=== PATIENT | female | born 1980 | race Caucasian/White ===

== ENCOUNTER 2018-09-22 21:21 | Emergency (ER) | payer BC, OTHER ==
[~2018-09-22] VITALS: Ht 167.6 cm; Wt 90.7 kg
--- NOTE | 2018-09-22 22:11 | ED Integumentary General ---
General Chief Complaint: Bite-Animal/Human/Insect Stated Complaint: LT LEG DOG BITE Nursing Triage Note: Patient states she was at the house of a friend while the friend was not home. Patient states that his dog bit her for an unknown reason. Patient has 2 puncture holes on her left outer thigh that are about 2 inches apart. Source: patient Exam Limitations: no limitations History of Present Illness Date Seen by Provider: September 22, 2018 Time Seen by Provider: 21:55 Initial Comments Patient presents to ER by private conveyance with chief complaint of a dog bite that occurred about 1800 today. She says the dog belongs to a neighbor and is well-known. Has demonstrated no evidence of illness, or unnatural aggression. She said that she thinks that she provoked the dog by coming into his area. [place] She said she came in because she cannot get the wound to stop bleeding. She has allergies to doxycycline but nothing else. No fevers chills nausea vomiting or sweats. Patient states she just had a whooping cough vaccination in March 2018. Allergies and Home Medications Allergies Coded Allergies: doxycycline (Verified Allergy, Unknown, 09/22/18) Patient Home Medication List Home Medication List Reviewed: Yes Review of Systems Review of Systems Constitutional: No chills, No diaphoresis EENTM: No ear discharge, No ear pain Respiratory: No cough, No short of breath Cardiovascular: No chest pain, No edema Gastrointestinal: No abdominal pain, No nausea Genitourinary: No discharge, No dysuria Past Qvdnlgo-Racfbv-Pfefqs Hx Patient Social History Alcohol Use: Regular Use Alcohol Beverage of Choice: Beer Recreational Drug Use: No Smoking Status: Never a Smoker 2nd Hand Smoke Exposure: No Recent Foreign Travel: No Contact w/Someone Who Travel: No Recent Infectious Disease Expo: No Recent Hopitalizations: No Physical Abuse: No Sexual Abuse: No Mistreated: No Fear: No Immunizations Up To Date Tetanus Booster (TDap): Less than 5yrs Seasonal Allergies Seasonal Allergies: No Past Medical History Surgeries: No Respiratory: No Cardiac: No Neurological: No Genitourinary: No Gastrointestinal: No Musculoskeletal: No Endocrine: No HEENT: No Cancer: No Psychosocial: No Integumentary: No Blood Disorders: No Physical Exam Vital Signs Vital Signs - First Documented 09/22/18 21:25 Temp 98.7 Pulse 109 Resp 20 B/P (MAP) 140/90 (107) Pulse Ox 100 O2 Delivery Room Air Capillary Refill : Less Than 3 Seconds General Appearance: WD/WN, no apparent distress HEENT: PERRL/EOMI, pharynx normal Neck: full range of motion, normal inspection Cardiovascular: normal peripheral pulses, regular rate, rhythm Respiratory: no respiratory distress, no accessory muscle use Neurologic/Psychiatric: alert, normal mood/affect, oriented x 3 Skin: other (left anterior lateral thigh with some superficial abrasions and 2 punctate zapata possibly caused by canines.) Progress/Results/Core Measures Results/Orders Vital Signs/I&O 09/22/18 21:25 Temp 98.7 Pulse 109 Resp 20 B/P (MAP) 140/90 (107) Pulse Ox 100 O2 Delivery Room Air Blood Pressure Mean: 107 Progress Progress Note : Time: 22:08 Progress Note Wound was thoroughly cleaned using chlorhexidine sterile water. The wounds were flushed with 50 cc each of sterile saline and then expressed. A loose gauze dressing was placed. Bactrim DS started. [facility] office notified. When she goes to [facility] she can ask if there was a tetanus shot in her whooping cough. She was offered a tetanus vaccination today and she declined. Departure Impression Primary Impression: Dog bite Qualified Codes: W54.0XXA - Bitten by dog, initial encounter Disposition: 01 HOME, SELF-CARE Condition: Stable Departure-Patient Inst. Decision time for Depature: 22:18 Referrals: THERESA WILHELM MD (PCP/Family) Primary Care Physician Patient Instructions: Animal Bites (DC), Rabies Add. Discharge Instructions: Keep the wound clean with regular soap and water. Change the dressing daily or as often as it becomes soiled and allow the wounds to just draining. Do not put anything over them to plug them. Take the Bactrim one capsule twice a day for the next 5 days. If you have increasing warmth, redness or discharge from the wound then you should follow-up with your primary doctor. If you have fevers chills nausea vomiting or other worrisome symptoms please return to the nearest ER. Follow-up with [facility] pharmacy and make sure you're up-to-date on her tetanus shot if not you can get from them or the health department or your primary care doctor. All discharge instructions reviewed with patient and/or family. Voiced understanding. Scripts Sulfamethoxazole/Trimethoprim (Bactrim Ds Tablet) 1 Each Tablet 1 EACH PO BID for 5 Days, #10 TAB 0 Refills Prov: DORETHA PURVIS 09/22/18 DORETHA PURVIS September 22, 2018 22:11
[2018-09-22] MEDS ORDERED: TRIM/SULFAMETH 160/800 (SEPTRA DS) TAB PO ONE (22:15)
[2018-09-22] MEDS ORDERED: SULF1TAB35 PO (22:20)
[2018-09-22 22:39] VITALS: BP 140/90
== END 2018-09-22 22:39 | disposition home or self-care (01) ==
LOC: ER FS 21:23
DX: S81.852A Open bite, left lower leg, initial encounter (principal); Z88.1 Allergy status to other antibiotic agents; W54.0XXA Bitten by dog, initial encounter
CPT/HCPCS: 99283

== ENCOUNTER 2020-10-06 09:30 | Emergency (ER) | payer BC ==
[~2020-10-06] VITALS: Ht 165 cm; Wt 95.3 kg
[~2020-10-06 09:30] MED LIST: SULF1TAB35 PO
[2020-10-06] MEDS ORDERED: NS IV 1000 ML 1,000 ML IV STA (09:49)
[2020-10-06] MEDS ORDERED: KETOROLAC 30 MG/ML VIAL IVP STA (09:49)
--- NOTE | 2020-10-06 10:05 | ED GI ---
General Chief Complaint: Abdominal/GI Problems Stated Complaint: ABD PAIN; FEVER Nursing Triage Note: Patient reports her period started and Sunday and finished on , states it was a normal period for her. She reports the cramps briefly subsided after her period, then returned on Sunday with worsening intensity. She reports a 104 degree temperature yesterday, states the fever is gone today and that she has not had any tylenol or ibuprofen today. Sepsis Screen: Possible Severe Sepsis Risk Source of Information: Patient History of Present Illness Date Seen by Provider: Oct 06, 2020 Time Seen by Provider: 09:31 Initial Comments 39 yo female that had been having lower abdominal pain with cramping since SundayOctober 02. She had gone to the [facility] clinic and was seen by Chanda Jarquin APRN. She reports having a normal LMP last week from Sunday to . She denies pain with urination. She has no blood in her stools or diarrhea. She reports a fever of 104 F at home with forehead thermometer. She states the fever is gone today but she feels light headed today. She was to have outpatient CT scan but while waiting to get that done she feels the pain was too severe and instead checked in to the ED. Severity/Quality: Severe Location: RLQ, LLQ, Suprapubic Activities at Onset: None Associated Symptoms: No Back Pain, No Chest Pain, No Diaphoresis; Fever/Chills; No Fatigue, No Headache, No Heartburn, No Nausea/Vomiting, No Rash, No Shortness of Air, No Swelling/Mass in Abdomen, No Syncope, No Weakness Allergies and Home Medications Allergies Coded Allergies: doxycycline (Verified Allergy, Unknown, 09/22/18) Home Medications Cephalexin 500 Mg Capsule, 500 MG PO TID Prescribed by: JESUS GREY on 10/06/20 1102 Sulfamethoxazole/Trimethoprim 1 Each Tablet, 1 EACH PO BID Prescribed by: DORETHA PURVIS on 09/22/18 2220 Patient Home Medication List Home Medication List Reviewed: Yes Review of Systems Review of Systems Constitutional: see HPI EENTM: No Symptoms Reported Respiratory: No Symptoms Reported Cardiovascular: No Symptoms Reported Gastrointestinal: See HPI Genitourinary: See HPI Musculoskeletal: no symptoms reported Skin: no symptoms reported Psychiatric/Neurological: No Symptoms Reported Past Yahmkym-Rdqxil-Yumnpd Hx Past Med/Social Hx: Reviewed Nursing Past Med/Soc Hx Patient Social History Alcohol Use: Regular Use Number of Drinks Today: AA Alcohol Beverage of Choice: Beer Smoking Status: Never a Smoker 2nd Hand Smoke Exposure: No Recent Infectious Disease Expo: No Recent Hopitalizations: No Immunizations Up To Date Tetanus Booster (TDap): Less than 5yrs Seasonal Allergies Seasonal Allergies: No Past Medical History Surgeries: No Respiratory: No Cardiac: No Neurological: No Genitourinary: No Gastrointestinal: No Musculoskeletal: No Endocrine: No HEENT: No Cancer: No Psychosocial: No Integumentary: No Blood Disorders: No Physical Exam Vital Signs Vital Signs - First Documented 10/06/20 09:31 Temp 37.4 Pulse 95 Resp 16 B/P (MAP) 144/69 (94) Pulse Ox 100 O2 Delivery Room Air Capillary Refill : Less Than 3 Seconds Height/Weight/BMI Height: 5'6.00" Weight: 200lbs. 0oz. 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, alert, oriented x 3 Skin: normal color, warm/dry Images 1 - pain across lower abdomen without rebound Focused Exam Lactate Level 10/06/20 09:50: Lactic Acid Level 1.17 Lactic Acid Level Laboratory Tests Test 10/06/20 09:50 Lactic Acid Level 1.17 MMOL/L (0.50-2.00) Progress/Results/Core Measures Results/Orders Lab Results Laboratory Tests Test 10/06/20 09:33 10/06/20 09:50 Range/Units Urine Color YELLOW Urine Clarity CLOUDY Urine pH 6.0 5-9 Urine Specific [place] <=1.005 1.016-1.022 Urine Protein 1+ H NEGATIVE Urine Glucose (UA) NEGATIVE NEGATIVE Urine Ketones 1+ H NEGATIVE Urine Nitrite NEGATIVE NEGATIVE Urine Bilirubin NEGATIVE NEGATIVE Urine Urobilinogen 0.2 < = 1.0 MG/DL Urine Leukocyte Esterase 2+ H NEGATIVE Urine RBC (Auto) 2+ H NEGATIVE Urine RBC NONE /HPF Urine WBC 50-100 H /HPF Urine Squamous Epithelial Cells 10-25 H /HPF Urine Crystals NONE /LPF Urine Bacteria MODERATE H /HPF Urine Casts NONE /LPF Urine Mucus NEGATIVE /LPF Urine Culture Indicated NO White Blood Count 14.6 H 4.3-11.0 10^3/uL Red Blood Count 4.44 4.35-5.85 10^6/uL Hemoglobin 9.8 L 11.5-16.0 G/DL Hematocrit 32 L 35-52 % Mean Corpuscular Volume 73 L 80-99 FL Mean Corpuscular Hemoglobin 22 L 25-34 PG Mean Corpuscular Hemoglobin Concent 30 L 32-36 G/DL Red Cell Distribution Width 16.4 H 10.0-14.5 % Platelet Count 472 H 130-400 10^3/uL Mean Platelet Volume 8.9 7.4-10.4 FL Immature Granulocyte % (Auto) 0 % Neutrophils (%) (Auto) 78 H 42-75 % Lymphocytes (%) (Auto) 15 12-44 % Monocytes (%) (Auto) 7 0-12 % Eosinophils (%) (Auto) 0 0-10 % Basophils (%) (Auto) 0 0-10 % Neutrophils # (Auto) 11.3 H 1.8-7.8 X 10^3 Lymphocytes # (Auto) 2.2 1.0-4.0 X 10^3 Monocytes # (Auto) 1.0 0.0-1.0 X 10^3 Eosinophils # (Auto) 0.0 0.0-0.3 10^3/uL Basophils # (Auto) 0.1 0.0-0.1 10^3/uL Immature Granulocyte # (Auto) 0.1 0.0-0.1 10^3/uL Neutrophils % (Manual) 77 % Lymphocytes % (Manual) 14 % Monocytes % (Manual) 4 % Eosinophils % (Manual) 0 % Basophils % (Manual) 0 % Band Neutrophils 3 % Atypical Lymphocytes 2 % Hypochromasia MODERATE Sodium Level 137 135-145 MMOL/L Potassium Level 4.2 3.6-5.0 MMOL/L Chloride Level 104 98-107 MMOL/L Carbon Dioxide Level 20 L 21-32 MMOL/L Anion Gap 13 5-14 MMOL/L Blood Urea Nitrogen 8 7-18 MG/DL Creatinine 0.60 0.60-1.30 MG/DL Estimat Glomerular Filtration Rate > 60 BUN/Creatinine Ratio 13 Glucose Level 127 H 70-105 MG/DL Lactic Acid Level 1.17 0.50-2.00 MMOL/L Calcium Level 9.1 8.5-10.1 MG/DL Corrected Calcium 9.2 8.5-10.1 MG/DL Total Bilirubin 0.4 0.1-1.0 MG/DL Aspartate Amino Transf (AST/SGOT) 20 5-34 U/L Alanine Aminotransferase (ALT/SGPT) 14 0-55 U/L Alkaline Phosphatase 105 40-136 U/L C-Reactive Protein 6.91 H <0.50 MG/DL Total Protein 7.1 6.4-8.2 GM/DL Albumin 3.9 3.2-4.5 GM/DL Lipase 27 8-78 U/L Serum Test, Qualitative NEGATIVE NEGATIVE My Orders Orders - JESUS GREY MD Ua Culture If Indicated (10/06/20 09:34) Cbc With Automated Diff (10/06/20 09:35) Comprehensive Metabolic Panel (10/06/20 09:35) Blood Culture (10/06/20 09:35) Ed Iv/Invasive Line Start (10/06/20 09:35) Crp Fs (10/06/20 09:35) Lactic Acid Analyzer (10/06/20 09:35) Lipase (10/06/20 09:35) Hcg,Qualitative Serum (10/06/20 09:35) Ed Iv/Invasive Line Start (10/06/20 09:35) Ct Abdomen/Pelvis W (10/06/20 09:49) Ns Iv 1000 Ml (Sodium Chloride 0.9%) (10/06/20 09:49) Ketorolac Injection (Toradol Injection) (10/06/20 09:49) Iohexol Injection (Omnipaque 350 Mg/Ml 1 (10/06/20 10:15) Received Contrast (Hold Metformin- Contr (10/06/20 10:15) Sodium Chloride Flush (Catheter Flush Sy (10/06/20 10:15) Ns (Ivpb) (Sodium Chloride 0.9% Ivpb Bag (10/06/20 10:15) Manual Differential (10/06/20 09:50) Urine Culture (10/06/20 11:02) Medications Given in ED Current Medications Medications Dose Ordered Sig/Rossi Route Start Time Stop Time Status Last Admin Dose Admin Iohexol 100 ml ONCE ONCE IV 10/06/20 10:15 10/06/20 10:16 DC 10/06/20 10:19 100 ML Sodium Chloride 10 ml NEEDED PRN IV 10/06/20 10:15 10/06/20 11:08 DC 10/06/20 10:19 10 ML Sodium Chloride 100 ml ONCE ONCE IV 10/06/20 10:15 10/06/20 10:16 DC 10/06/20 10:19 80 ML Vital Signs/I&O 10/06/20 10/06/20 09:31 11:06 Temp 37.4 Pulse 95 78 Resp 16 18 B/P (MAP) 144/69 (94) 128/77 Pulse Ox 100 100 O2 Delivery Room Air Room Air Blood Pressure Mean: 94 Progress Progress Note #1: Progress Note Check labs, CT scan of abdomen pelvis. IVF for hydration. Toradol for pain. Differential diagnosis includes UTI, Pyelonephritis, appendicitis, diverticulitis, colitis, ovarian cyst, gastroenteritis Progress Note #2: Progress Note Lab from clinic shows UTI. CBC with elevated WBC but lactic acid is normal. normal renal and liver enzymes. CT scan shows ovarian cyst on right side but otherwise no acute significant abnormality to account for her symptoms. Pt feels better after treatment so will discharge on antibiotics, naproxen and encouraged to follow up with clinic if not improving or having more problems. May need ultrasound as well if not improving. Diagnostic Imaging Diagonstic Imaging: CT Plain Films/CT/US/NM/MRI: abdomen, pelvis Comments [facility]. [place], [place] NAME: TERESA CHATMAN [facility] REC#: [id number] PT STATUS: REG ER : 1980 PHYSICIAN: JESUS GREY MD ADMIT DATE: 10/06/20/ER FS Draft Date of Exam:10/06/20 CT ABDOMEN/PELVIS W PROCEDURE: CT abdomen and pelvis with contrast. TECHNIQUE: Multiple contiguous axial images were obtained through the abdomen and pelvis after administration of intravenous contrast. Auto Exposure Controls were utilized during the CT exam to meet ALARA standards for radiation dose reduction. All CT scans use one or more of the following dose optimizing techniques: automated exposure control, MA and/or KvP adjustment based on patient size and exam type or iterative reconstruction. INDICATION: Lower abdominal pain. COMPARISON: None FINDINGS: Included portions of the lung bases are clear. CT ABDOMEN: Small bowel loops are nondistended. Normal appendix is identified. The kidneys, adrenal glands, spleen, pancreas, and liver have normal CT appearance. There is no loculated fluid collection, free fluid, nor free air within the abdomen. No abnormal mesenteric or retroperitoneal adenopathy is seen. Osseous structures show no acute abnormalities. CT PELVIS: Urinary bladder is unopacified and minimally distended. No calculi are seen within the urinary bladder. Right ovarian cyst measures 1.9 x 2.5 cm. There is small amount of free fluid within the pelvis. There is no loculated air-fluid collection or free air. No abnormal lymph nodes are seen. Osseous structures show no acute abnormalities. IMPRESSION: 1. Small right ovarian cyst and small amount of free fluid within the pelvis; possibly physiologic. 2. Otherwise, unremarkable CT of the abdomen and pelvis. Dictated on workstation # [id number] Dict: 10/06/20 1030 Trans: 10/06/20 1037 ESTELA [id number] Interpreted by: RANDI MELARA MD Electronically signed by: Departure Impression Primary Impression: Cystitis without hematuria Additional Impressions: Ovarian cyst Qualified Codes: N83.201 - Unspecified ovarian cyst, right side Pelvic pain Disposition: 01 HOME, SELF-CARE Condition: Improved Departure-Patient Inst. Decision time for Depature: 11:02 Referrals: THERESA WILHELM MD (PCP/Family) Primary Care Physician Patient Instructions: Ovarian Cyst ED, Urinary Tract Infection, Adult ED, Abdominal Pain, Adult ED Add. Discharge Instructions: Stay well hydrated and drink plenty of water and cranberry juice. Follow up with clinic for continued pain/problems. If you still are having symptoms and pain you may need an ultrasound to look at the ovarian cyst. Take the full course of antibiotics to treat for UTI. Use Aleve (Naproxen) 2 pills every 12 hours as needed for pain. You may still take acetaminophen for pain if needed. All discharge instructions reviewed with patient and/or family. Voiced understanding. Scripts Cephalexin (Cephalexin) 500 Mg Capsule 500 MG PO TID for UTI for 7 Days, #21 CAP 0 Refills Prov: JESUS GREY MD 10/06/20 JESUS GREY MD Oct 06, 2020 10:05
[2020-10-06 10:12] LABS: HEMATOCRIT 32 % (35-52); HEMOGLOBIN 9.8 G/DL (11.5-16.0); MEAN CORPUSCULAR HEMOGLOBIN 22 PG (25-34); MEAN CORPUSCULAR VOLUME 73 FL (80-99); WHITE BLOOD COUNT 14.6 10^3/uL (4.3-11.0)
[2020-10-06 10:13] LABS: BASOPHILS % (AUTO) 0 % (0-10); EOSINOPHILS % (AUTO) 0 % (0-10); LYMPHOCYTES % (AUTO) 15 % (12-44); MEAN CORPUSCULAR HGB CONC 30 G/DL (32-36); MEAN PLATELET VOLUME 8.9 FL (7.4-10.4); MONOCYTES % (AUTO) 7 % (0-12); NEUTROPHILS % (AUTO) 78 % (42-75); PLATELET COUNT 472 10^3/uL (130-400)
[2020-10-06 10:14] LABS: BASOPHILS # (AUTO) 0.1 10^3/uL (0.0-0.1); LYMPHOCYTES # (AUTO) 2.2 X 10^3 (1.0-4.0); NEUTROPHILS # (AUTO) 11.3 X 10^3 (1.8-7.8)
[2020-10-06] MEDS ORDERED: NS 100 ML (IVPB) BAG IV ONE (10:15)
[2020-10-06] MEDS ORDERED: HOLD METFORMIN - RECEIVED CONTRAST 20 ML VIAL IV SCH (10:15)
[2020-10-06] MEDS ORDERED: IOHEXOL 350 MG/ML 100 ML (OMNIPAQUE 350) VIAL IV ONE (10:15)
[2020-10-06] MEDS ORDERED: CATHETER FLUSH 10 ML SYR IV PRN (10:15)
[2020-10-06 10:35] LABS: BILIRUBIN,TOTAL 0.4 MG/DL (0.1-1.0); BUN/CREATININE RATIO 13; CALCIUM 9.1 MG/DL (8.5-10.1); CARBON DIOXIDE 20 MMOL/L (21-32); CHLORIDE 104 MMOL/L (98-107); GFR ESTIMATED > 60; GLUCOSE 127 MG/DL (70-105); POTASSIUM 4.2 MMOL/L (3.6-5.0); SODIUM 137 MMOL/L (135-145)
[2020-10-06 10:36] LABS: ALANINE AMINOTRANSFERASE 14 U/L (0-55); ALBUMIN 3.9 GM/DL (3.2-4.5); ALKALINE PHOSPHATASE 105 U/L (40-136); LIPASE 27 U/L (8-78); TOTAL PROTEIN 7.1 GM/DL (6.4-8.2)
[2020-10-06 10:37] LABS: ATYPICAL LYMPHOCYTES 2 %; BAND NEUTROPHILS 3 %; BASOPHILS % (MANUAL) 0 %; EOSINOPHILS % (MANUAL) 0 %; LYMPHOCYTES % (MANUAL) 14 %; MONOCYTES % (MANUAL) 4 %; NEUTROPHILS % (MANUAL) 77 %
--- NOTE | 2020-10-06 10:37 | Diagnostic Imaging Report ---
PROCEDURE: CT abdomen and pelvis with contrast. TECHNIQUE: Multiple contiguous axial images were obtained through the abdomen and pelvis after administration of intravenous contrast. Auto Exposure Controls were utilized during the CT exam to meet ALARA standards for radiation dose reduction. All CT scans use one or more of the following dose optimizing techniques: automated exposure control, MA and/or KvP adjustment based on patient size and exam type or iterative reconstruction. INDICATION: Lower abdominal pain. COMPARISON: None FINDINGS: Included portions of the lung bases are clear. CT ABDOMEN: Small bowel loops are nondistended. Normal appendix is identified. The kidneys, adrenal glands, spleen, pancreas, and liver have normal CT appearance. There is no loculated fluid collection, free fluid, nor free air within the abdomen. No abnormal mesenteric or retroperitoneal adenopathy is seen. Osseous structures show no acute abnormalities. CT PELVIS: Urinary bladder is unopacified and minimally distended. No calculi are seen within the urinary bladder. Right ovarian cyst measures 1.9 x 2.5 cm. There is small amount of free fluid within the pelvis. There is no loculated air-fluid collection or free air. No abnormal lymph nodes are seen. Osseous structures show no acute abnormalities. IMPRESSION: 1. Small right ovarian cyst and small amount of free fluid within the pelvis; possibly physiologic. 2. Otherwise, unremarkable CT of the abdomen and pelvis. Dictated by: Dictated on workstation # [id number]
[2020-10-06 10:38] LABS: HYPOCHROMASIA MODERATE
[2020-10-06] MEDS ORDERED: CEPH500C PO (11:02)
[2020-10-06 11:06] VITALS: BP 128/77
[2020-10-06 11:32] LABS: COLOR,URINE YELLOW
[2020-10-06 11:33] LABS: BILIRUBIN,URINE NEGATIVE (NEGATIVE); CLARITY,URINE CLOUDY; GLUCOSE, URINE (UA) NEGATIVE (NEGATIVE); KETONES,URINE 1+ (NEGATIVE); LEUKOCYTE ESTERASE ,URINE 2+ (NEGATIVE); NITRITE,URINE NEGATIVE (NEGATIVE); PROTEIN,URINE 1+ (NEGATIVE)
[2020-10-06 11:34] LABS: BACTERIA,URINE MODERATE /HPF; WBC,URINE 50-100 /HPF
== END 2020-10-06 11:08 | disposition home or self-care (01) ==
LOC: EDUNIT# 09:30 → ER FS 09:31
DX: N30.90 Cystitis, unspecified without hematuria (principal); N83.201 Unspecified ovarian cyst, right side
CPT/HCPCS: 36415; 74177; 80053; 81000; 83605; 83690; 84703; 85007; 85027; 86141; 87040; 87088